=== PATIENT | female | born 1970 | race Caucasian/White ===

== ENCOUNTER → 2019-11-11 | Outpatient (CLI) | payer OTHER ==
--- NOTE | 2019-11-11 13:45 | RAD ---
EXAM: Left lower extremity venous Doppler. HISTORY: Left calf rash and swelling. COMPARISON: None. FINDINGS: Grayscale and Doppler analysis of the left lower extremity deep venous systems was performed with graded compression and augmentation. The common femoral, greater saphenous, superficial femoral, popliteal and calf veins were assessed. There is no evidence of deep venous thrombosis. IMPRESSION: 1. No evidence of deep venous thrombosis. Electronically signed by: Marti Gonzalez MD (11/11/2019 1:42 PM) [id number]
== END | disposition home or self-care (01) ==
LOC: US 13:01
PROVIDERS: ATTEND Nurse Practitioner Adult Health
DX: R22.42 Localized swelling, mass and lump, left lower limb (principal)
CPT/HCPCS: 93971

== ENCOUNTER → 2019-12-03 | Outpatient (CLI) | payer OTHER ==
[~2019-12-03] MED LIST: MULT-505 PO
== END | disposition home or self-care (01) ==
LOC: LAB 08:00
PROVIDERS: ATTEND Registered Nurse
DX: Z11.59 Encounter for screening for other viral diseases (principal)
CPT/HCPCS: U0003-CS

== ENCOUNTER → 2019-12-07 | Day surgery (SDC) | payer OTHER ==
[~2019-12-07] MED LIST changes: +IPRATRPIUM/ALBUTEROL 0.5/2.5MG 3 ML NEBU. NEB PRN; +IV RINGERS SOLUTION,LACTATED 1,000 ML IV SCH; +ONDANSETRON PF 4 MG/2 ML VIAL. IV PRN; +PROPOFOL 10,000 MCG/ML (20ML) VIAL IV ONE
[2019-12-07 10:05] LABS: U PREG PATIENT NEGATIVE (NEG)
[2019-12-07 10:55] VITALS: BP 132/74
--- NOTE | 2019-12-08 15:09 | PATHOLOGY ---
[facility] Accession Number: [id number] . 01 Material submitted: . cecum - CECAL POLYP . 01 Clinical history: . None provided . 02 Diagnosis: Colon biopsies, cecal polyp: - Hyperplastic polyp/prominent mucosal fold. (JPM:[facility] 12/08/2019) [facility] 12/08/2019 0836 Local . 02 Comment: Sections of the cecal biopsy reveal segments of colonic mucosa consistent with hyperplastic polyp/prominent mucosal fold. There are no adenomatous changes or evidence of malignancy. (JPM:[facility] 12/08/2019) . . 02 Electronically signed: . Teto Reyna MD, Pathologist NPI- [id number] . 01 Gross description: . The specimen is received in formalin, labeled "Melissa Schlereth, cecal polyp". Received are two segments of pale lara soft tissue ranging in size from 0.3 to 0.4 cm in maximum dimensions. The specimen is submitted entirely in cassette A1. ([facility]; 12/07/2019) QA/[facility] 12/07/2019 1755 Local . 02 Pathologist provided ICD-10: K63.5 . 02 CPT . 891401 Specimen Comment: A courtesy copy of this report has been sent to [phone], [phone] Specimen Comment: [id number] Specimen Comment: Report sent to / DR BARRIOS Performed at: 01 [facility] [address], [place] [id number] MD Benjamin Pedraza MD Phone: [phone] Performed at: 02 [facility] [address], [place] [id number] MD Teto Reyna MD Phone: [phone]
== END | disposition home or self-care (01) ==
LOC: SURG 08:41
PROVIDERS: ATTEND Emergency Medicine
DX: Z12.11 Encounter for screening for malignant neoplasm of colon (principal); K63.5 Polyp of colon
CPT/HCPCS: 45380; 81025; 88305; J2704; J7120